=== PATIENT | female | born 1960 | race Caucasian/White ===

== ENCOUNTER → 2019-03-27 | Day surgery (SDC) | payer OTHER ==
[2019-03-25 13:35] LABS: BASOPHILS # (AUTO) 0.2 (0.0-0.1); BASOPHILS % 1.3 % (0.0-1.0); EOSINOPHILS # (AUTO) 0.3 (0.0-0.4); EOSINOPHILS % 1.8 % (0.0-6.0); HEMATOCRIT 42.1 % (34.2-44.1); HEMOGLOBIN 14.2 g/dL (12.0-16.0); LYMPHOCYTES # (AUTO) 2.4 (1.0-3.2); LYMPHOCYTES % 16.2 % (18.0-39.1); MEAN CORPUSCULAR HEMOGLOBIN 32.2 pg (28-32); MEAN CORPUSCULAR HGB CONC 33.7 g/dL (31-35); MEAN CORPUSCULAR VOLUME 95.5 fL (81-99); MONOCYTES # (AUTO) 0.9 (0.2-0.8); MONOCYTES % 6.3 % (4.4-11.3); NEUTROPHILS # (AUTO) 10.8 (2.1-6.9); NEUTROPHILS % 73.9 % (38.7-80.0); PLATELET COUNT 379 x10e3/uL (140-360); RED BLOOD COUNT 4.41 x10e6/uL (3.6-5.1); RED CELL DISTRIBUTION WIDTH 13.2 % (11.7-14.4)
[~2019-03-27] MED LIST: AMLODIPINE BESY10 MG PO; ASA81 MG PO; ASPIRIN325 MG PO; CIPRO500 MG PO; CYMBALTA PO; CYMBALTA30 MG PO; CYMBALTA60 MG PO; DEMADEX10 MG PO; FENTANYL CITRATE/PF 100MCG/2 ML INJ ONE; GABAPENTIN300 MG PO; GLUCAGON FOR INJ 1 MG VIAL ONE; HUMALOG100 UNIT/1; HYDROCODON-ACE1 EAC8 PO; HYOSCYAMINE SULFATE 0.5 MG/ML INJ ONE; K DUR10 MEQ PO; LEVAQUIN750 MG PO; LEVOCETIRIZINE D5 MG PO; LEVOTHYROXINE175 MCG PO; LIDOCAINE HCL 2% LOCAL INJ 5 ML SDV VIAL INJ ONE; LOPRESSOR50 MG PO; LOSARTAN POTAS100 MG PO; LOSARTAN POTASS25 MG PO; LOSARTAN POTASS50 MG; METOCLOPRAMIDE10 MG PO; METOPROLOL SUCC50 MG PO; METOPROLOL TART50 MG PO; MIDAZOLAM HCL 2 MG/2 ML VIAL ONE; MONTELUKAST SOD10 MG PO; MUCINEX600 MG PO; NORCO 10-325 T1 EACH PO; NORVASC10 MG PO; NORVASC2.5 MG PO; NOVOLOG100 UNIT/1 SQ; OMEPRAZOLE20 MG PO; OMEPRAZOLE40 MG PO; OXCARBAZEPINE150 MG PO; PANTOPRAZOLE SO40 MG PO; PLAVIX75 MG PO; POTASSIUM GLUCO99 M1 PO; PRAVASTATIN SOD10 MG PO; PREDNISONE10 MG; PREDNISONE10 MG PO; PREDNISONE20 MG PO; PREDNISONE5 MG PO; PROPOFOL IV EMULSION 10 MG/ML 50 ML VIAL ONE; PROVENTIL HFA6.7 GM INH; REGLAN5 MG PO; SINGULAIR10 MG PO; SOMA350 MG PO; SPIRIVA18 MCG; SPIRIVA18 MCG INH; SYMBICORT 80-10.2 GM INH; TOPIRAMATE25 MG PO; VANCOMYCIN1 GM/250 M IV; XYZAL5 MG PO; Z.0.METOCLOPRAMIDE10; Z.0.NEURONTIN300 MG PO; Z.0.NORVASC10 MG PO; Z.0.PLAVIX75 MG PO; Z.0.PROTONIX40 MG PO; Z.0.SIMVASTATIN10 MG; Z.0.SYNTHROID150 MCG PO; [UNRECOGNIZED DRUG - OTHER]; [UNRECOGNIZED DRUG - OTHER] PO; [UNRECOGNIZED DRUG - OTHER] PO
--- OUTSIDE RECORDS SUMMARY | 2019-03-27 06:12 | XMS REPORT | Summary of Care ---
Author Author WILMA RO, [facility] Organization Unknown Address Unknown Phone Unavailable Care Team Providers Care Coyote Hunter Name Role Phone PARTH Jeffery, DESTINY Unavailable Unavailable DORA ALMENDAREZ LA, TANVI Linda Unavailable Unavailable DORA Jeffery, TANVI Unavailable Unavailable BRYON ALMENDAREZ [place], PA Betts Unavailable Unavailable PARTH ALMENDAREZ LA, DESTINY Unavailable Unavailable Unavailable Unavailable Functional Status Name Dates Details Functional status health issues are not documented Status: Name Dates Details Cognitive status health issues are not documented Status: Problems Name Dates Details Peripheral neuropathy, hereditary/idiopathic (356.9, G60.9) Status: Active Asthma (493.90, J45.909) Status: Active Need for influenza vaccination (V04.81, Z23) Status: Active Encounter for routine gynecological examination with Papanicolaou smear of cervix (V72.31, Z01.419) Status: Active Visit for screening mammogram (V76.12, Z12.31) Status: Active Yeast vaginitis (112.1, B37.3) Status: Active Irregular bleeding (626.4, N92.6) Status: Active Post-menopause bleeding (627.1, N95.0) Status: Active Type 1 diabetes mellitus (250.01, E10.9) Status: Active Presence of insulin pump (V45.85, Z96.41) Status: Active Essential (primary) hypertension (401.9, I10) Status: Active Hyperlipidemia (272.4, E78.5) Status: Active Hypothyroidism (244.9, E03.9) Status: Active Medications Name Dates Details Torsemide 20 MG Oral Tablet two every morning DESTINY ALBA M.D. * Start : 28-Apr-2013 Active Clopidogrel Bisulfate 75 MG Oral Tablet TAKE 1 TABLET DAILY. * Refills: 0 PARTH M.Jeanine, DESTINY * Start : 28-Apr-2013 Active Metoprolol Succinate ER 50 MG Oral Tablet Extended Release 24 Hour 1 a day * Refills: 0 PARTH M.Jeanine, DESTINY * Start : 28-Apr-2013 Active amLODIPine Besylate 10 MG Oral Tablet TAKE 1 TABLET DAILY FOR BLOOD PRESSURE. * Refills: 0 DESTINY ALBA M.D. * Start : 28-Apr-2013 Active Levothyroxine Sodium 175 MCG Oral Tablet TAKE ONE TABLET BY MOUTH DAILY SATURDAY TO SATURDAY AND 1/2 TABLET ON SATURDAY. Damaso MCCARTHYJose Armando 08-09-18 * Quantity: 90 Refills: 0 DESTINY ALBA M.D. * Start : 28-Apr-2013 Active Aspirin 81 MG TABS * Refills: 0 DESTINY ALBA M.D. * Start : 28-Apr-2013 Active FreeStyle Lite Test In Vitro Strip USE TO TEST BLOOD SUGAR 6 TIMES A DAY. * Quantity: 600 Refills: 0 DESTINY ALBA M.D. * Start : 10-Jun-2018 Active Losartan Potassium 50 MG Oral Tablet Per Dr Hinson * Refills: 0 DESTINY ALBA M.D. * Start : 29-Apr-2013 Active Gabapentin 600 MG Oral Tablet * Refills: 0 DESTINY ALBA M.D. * Start : 03-Mar-2015 Active HumaLOG 100 UNIT/ML Subcutaneous Solution 12MN=0.7; 8am=0.9; 6 pm=0.9; ICR 1:8 (MN); 1:8(11A); 1:8(3P); CF 70 (MN); 70 (3 30p); UP TO 70 UNITS A DAY. * Quantity: 7 Refills: 0 DESTINY ALBA M.D. * Start : 18-Jul-2015 Active 10 ML Vial Vitamin D3 2000 UNIT Oral Capsule 1 a day * Quantity: 100 Refills: 4 DESTINY ALBA M.D. * Start : 25-Mar-2017 Active Atorvastatin Calcium 20 MG Oral Tablet TAKE ONE (1) TABLET(S) BY MOUTH AT NIGHT. REPLACING PRAVASTATIN. * Quantity: 90 Refills: 0 DESTINY ALBA M.D. * Start : 23-May-2018 Active FreeStyle Rin 14 Day Sensor CHANGE ONE SENSOR EVERY14 DAYS DIRECTED * Quantity: 7 Refills: 3 DESTINY ALBA M.D. * Start : 21-Mar-2018 Active FreeStyle Rin 14 Day [place] Device 1 reciever/Saxon for Rin to check blood sugars with Rin sensor * Quantity: 1 Refills: 3 DESTINY ALBA M.D. * Start : 21-Mar-2018 Active DULoxetine HCl - 60 MG Oral Capsule Delayed Release Particles * Refills: 0 Active Pantoprazole Sodium 40 MG Oral Tablet Delayed Release * Refills: 0 Active Montelukast Sodium 10 MG Oral Tablet * Refills: 0 Active Basaglar KwikPen 100 UNIT/ML Subcutaneous Solution Pen-injector Inject 12 units every 12 hours as basal insulin when insulin pump is not in use. . * Quantity: 2 Refills: 0 DESTINY ALBA M.D. 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.8, J84.89) Status: Resolved History of Chronic obstructive pulmonary disease (496, J44.9) Status: Resolved History of Coronary Artery Disease (V12.59) Status: Resolved History of Diabetes mellitus (250.00, E11.9) Status: Resolved History of Epilepsy (345.90) Status: Resolved History of essential hypertension (V12.59, Z86.79) Status: Resolved History of Graves disease (242.00, E05.00) Status: Resolved Personal history of asthma (V12.69, Z87.09) Status: Resolved Personal history of asthma (V12.69, Z87.09) Status: Resolved Personal history of urinary tract infection (V13.02, Z87.440) Status: Resolved Procedures Procedure Dates Details History of Rotator Cuff Repair Completed History of Back Surgery Completed History of Cholecystectomy Completed History of Tonsillectomy Completed History of Cholecystectomy Completed History of Shoulder Surgery Completed History of Knee Surgery Completed History of Back Surgery Completed History of Foot Surgery Completed History of Foot Surgery Completed Immunization Name Dates Details Influenza on: 04-Oct-2014 Fluzone INJ Lot #: [id number] on: 15-Sep-2015 Fluzone Quadrivalent 0.5 ML Intramuscular Suspension on: 01-Sep-2018 Family History Name Dates Details Family history of Hypertension (V17.49) Comments: Family History Status: Active Family history of Diabetes Mellitus (V18.0) Comments: Family History Status: Active Family history of Coronary Artery Disease (V17.49) Comments: Family History Status: Active Name Dates Details Family history of Hypertension (V17.49) Status: Active Social History Name Dates Details - Status: Name Dates Details Former smoker Vital Signs Date Test Result Details :11 BP Systolic 150 mm[Hg] Status: BP Diastolic 70 mm[Hg] Status: :40 BP Systolic 171 mm[Hg] Status: Comments: Location: LUE; Position: Sitting BP Diastolic 54 mm[Hg] Status: Comments: Location: LUE; Position: Sitting Height 67 in Status: Weight 204.375 lb Status: Body Mass Index Calculated 32.01 kg/m2 Status: Body Surface Area Calculated 2.04 m2 Status: Heart Rate 61 /min Status: Results Date Description Value Details :41 [O] Hemoglobin A1c (in office) HEMOGLOBIN A1c 8.0 :41 [O] Lipid Panel (In Office) CHOLESTEROL, TOTAL 196 HDL CHOLESTEROL 54 TRIGLYCERIDES 55 LDL-CHOLESTEROL 132 NON HDL CHOLESTEROL 142 T. Chol/HDL Ratio 3.6 GLUCOSE 198 :42 Glucose (Point of Care In Office) Glucose POC [facility] 213 Plan of Care Name Dates Details Planned Observations Planned Goals not documented Planned Encounters Appointment; JAGDEEP DILLON RD On: 13-Mar-2019 13:00 Appointment; DESTINY ALBA M.D. On: 29-May-2019 14:45 Interventions Provided Medication Changes* Levothyroxine Sodium 175 MCG Oral Tablet - Renew Labs/Procedures/Imaging* [O] Hemoglobin A1c (in office); Done: 05 Feb 2019 * [O] Lipid Panel (In Office); Done: 05 Feb 2019 * Glucose (Point of Care In Office); Done: 05 Feb 2019 Instructions Name Dates Details Instructions not documented Encounters Appointment; DESTINY ALBA M.D. Encounter Diagnosis: Problem not documented On: 25-Mar-2017 12:00 Appointment; DESTINY ALBA M.D. Encounter Diagnosis: Problem not documented On: 03-Jul-2017 14:45 Appointment; DESTINY ALBA M.D. Encounter Diagnosis: Problem not documented On: 08-Nov-2017 15:15 Appointment; JAGDEEP DILLON RD Encounter Diagnosis: Problem not documented On: 12-Dec-2017 8:00 Appointment; JAGDEEP DILLON RD Encounter Diagnosis: Problem not documented On: 13-Dec-2017 8:00 Appointment; JAGDEEP DILLON RD Encounter Diagnosis: Problem not documented On: 10-Jan-2018 10:00 Appointment; DESTINY ALBA M.D. Encounter Diagnosis: Problem not documented On: 21-Mar-2018 11:00 Appointment; DESTINY ALBA M.D. Encounter Diagnosis: Problem not documented On: 28-Mar-2018 8:30 Appointment; PA SLATER M.D. Encounter Diagnosis: Problem not documented On: 02-Apr-2018 8:40 Appointment; KATARZYNA SIERRA3 Encounter Diagnosis: Problem not documented On: 07-Apr-2018 8:30 Appointment; DESTINY ALBA M.D. Encounter Diagnosis: Problem not documented On: 14-Apr-2018 8:30 Appointment; DESTINY ALBA M.D. Encounter Diagnosis: Problem not documented On: 30-May-2018 12:00 Appointment; DESTINY ALBA M.D. Encounter Diagnosis: Problem not documented On: 08-Aug-2018 12:00 Appointment; DESTINY ALBA M.D. Encounter Diagnosis: Problem not documented On: 06-Nov-2018 13:30 Appointment; DESTINY ALBA M.D. Encounter Diagnosis: Problem not documented On: 05-Feb-2019 11:00
[2019-03-27 10:50] VITALS: BP 110/56
--- NOTE | 2019-03-27 17:30 | Operative Report ---
DATE OF PROCEDURE: 03/27/2019 SURGEON: Reid Heath MD PROCEDURE: Esophagogastroduodenoscopy with biopsies and colonoscopy with polypectomy. INDICATIONS FOR EGD: Upper abdominal pain, bloating, nausea. INDICATIONS FOR COLONOSCOPY: Surveillance colonoscopy, personal history of colon polyps. MEDICATION: The patient was done under MAC, please see anesthesiologist's note. PROCEDURE IN DETAIL: With the patient in left lateral decubitus position, the flexible fiberoptic Olympus gastroscope was introduced into the esophagus under direct visualization without any difficulty. There was some cluster of nodules noted in the cervical esophagus that was biopsied. Some patchy erythema was noted in the distal esophagus. The scope was then advanced with ease into the stomach and mucosa overlying the antrum and the body revealed some patchy erythema, [id number] edema and biopsies were obtained and sent to stain for H pylori. Pylorus was of normal contour and shape, was intubated with ease and the scope was advanced all the way to the second portion of the duodenum. Biopsies were obtained from the proximal second portion and the duodenal bulb to rule out sprue. The scope was then withdrawn back into the stomach and retroflexed and mucosa overlying the fundus and the cardia appeared to be within normal limits. The scope was then straightened out, it was subsequently withdrawn. The patient tolerated procedure well. IMPRESSION: 1. Cluster of nodules, cervical esophagus, biopsied. 2. Distal esophagitis, mild. 3. Gastritis, biopsied, biopsies sent to stain for H pylori. 4. Rule out sprue. PLAN: Follow up histology. Initiate Protonix 40 mg one p.o. q.a.m. a.c. PROCEDURE IN DETAIL: The patient was then turned around. After adequate lubrication of the anal canal, a flexible fiberoptic Olympus colonoscope was inserted into the rectum with ease and advanced all the way to the cecum. The colon was excessively spastic and irritable and suboptimally visualized. The scope was then withdrawn slowly whatever was visualized and mucosa overlying the cecum, ascending colon, and transverse colon appeared to be grossly within normal limits. Two polyps were removed per snare electrocautery from the descending colon. One polyp was snared and one polyp was hot biopsied from the sigmoid colon. The rectum grossly appeared to be within normal limits. The scope was then retroflexed into the distal rectum and small internal hemorrhoids were noted, none of which was actively bleeding. The scope was then straightened out, it was subsequently withdrawn. The patient tolerated procedure well. IMPRESSION: 1. Colon excessively spastic and irritable, suboptimally visualized. 2. Descending colon polyps snared x2. 3. Sigmoid colon polyps x2, one snared and one hot biopsied. 4. Internal hemorrhoids, none actively bleeding. PLAN: Follow up histology. Initiate high-fiber, low-fat diet. Initiate high-fiber supplement. The patient might benefit from a followup colonoscopy in one year as the colon was suboptimally visualized due to excessive spasticity and irritability. Reid Heath MD [facility]/[place] /[id number]
== END | disposition home or self-care (01) ==
LOC: OR 06:10
PROVIDERS: ATTEND Internal Medicine Gastroenterology
DX: K29.70 Gastritis, unspecified, without bleeding (principal); D12.4 Benign neoplasm of descending colon; D12.5 Benign neoplasm of sigmoid colon; K22.8 Other specified diseases of esophagus; K20.9 Esophagitis, unspecified; K58.9 Irritable bowel syndrome, unspecified; K64.8 Other hemorrhoids; J44.9 Chronic obstructive pulmonary disease, unspecified; I10 Essential (primary) hypertension; G47.33 Obstructive sleep apnea (adult) (pediatric); E11.9 Type 2 diabetes mellitus without complications; I44.0 Atrioventricular block, first degree; R00.1 Bradycardia, unspecified; E03.9 Hypothyroidism, unspecified; Z01.810 Encounter for preprocedural cardiovascular examination; Z01.812 Encounter for preprocedural laboratory examination; Z79.82 Long term (current) use of aspirin; Z79.02 Long term (current) use of antithrombotics/antiplatelets; Z79.4 Long term (current) use of insulin; Z68.33 Body mass index [BMI] 33.0-33.9, adult; Z87.891 Personal history of nicotine dependence; Z80.0 Family history of malignant neoplasm of digestive organs
CPT/HCPCS: 36415 ×2; 43239; 45384; 45385; 82948; 85025; 93005; J1610; J1980; J2001; J2250; J2704; 45378

== ENCOUNTER → 2019-07-21 | Day surgery (SDC) | payer OTHER ==
[2019-07-08 11:19] LABS: BASOPHILS # (AUTO) 0.1 (0.0-0.1); BASOPHILS % 1.3 % (0.0-1.0); EOSINOPHILS # (AUTO) 0.2 (0.0-0.4); EOSINOPHILS % 2.9 % (0.0-6.0); HEMATOCRIT 38.4 % (34.2-44.1); HEMOGLOBIN 12.8 g/dL (12.0-16.0); LYMPHOCYTES # (AUTO) 2.2 (1.0-3.2); LYMPHOCYTES % 26.1 % (18.0-39.1); MEAN CORPUSCULAR HEMOGLOBIN 32.7 pg (28-32); MEAN CORPUSCULAR HGB CONC 33.3 g/dL (31-35); MEAN CORPUSCULAR VOLUME 98.2 fL (81-99); MONOCYTES # (AUTO) 0.9 (0.2-0.8); MONOCYTES % 10.5 % (4.4-11.3); NEUTROPHILS # (AUTO) 4.9 (2.1-6.9); NEUTROPHILS % 58.4 % (38.7-80.0); PLATELET COUNT 330 x10e3/uL (140-360); RED BLOOD COUNT 3.91 x10e6/uL (3.6-5.1); RED CELL DISTRIBUTION WIDTH 13.8 % (11.7-14.4)
[~2019-07-21] MED LIST changes: +ALPHA LIPOIC A300 MG PO; +DEXTROSE 5% 250ML 250 ML IV ONE; -GLUCAGON FOR INJ 1 MG VIAL ONE; -HYOSCYAMINE SULFATE 0.5 MG/ML INJ ONE; -LIDOCAINE HCL 2% LOCAL INJ 5 ML SDV VIAL INJ ONE; +OR PHACO EYE KIT ONE; +PREOP PHACO EYE KIT ONE; -PROPOFOL IV EMULSION 10 MG/ML 50 ML VIAL ONE
--- OUTSIDE RECORDS SUMMARY | 2019-07-21 11:41 | XMS REPORT | Summary of Care ---
Author Author Pattie Croft R.N. Organization Unknown Address Unknown Phone Unavailable Care Team Providers Care Assistant Coach Name Role Phone PARTH Jeffery, DESTINY Unavailable Unavailable Lang Hull, Pattie Unavailable Unavailable DORA ALMENDAREZ [place], TANVI Linda Unavailable Unavailable DORA Jeffery, TANVI Byrne Unavailable BRYON ALMENDAREZ [place], PA Betts Unavailable Unavailable PARTH ALMENDAREZ, DESTINY Unavailable Unavailable Unavailable Unavailable Functional Status [...] 20 MG Oral Tablet two every morning PARTH Jeffery, DESTINY * Start : 28-Apr-2013 Active Clopidogrel Bisulfate 75 MG Oral Tablet TAKE 1 TABLET DAILY. * Refills: 0 PARTH M.Jeanine, DESTINY * Start : 28-Apr-2013 Active Metoprolol Succinate ER 50 MG Oral Tablet Extended Release 24 Hour 1 a day * Refills: 0 PARTH M.D., DESTINY * Start : 28-Apr-2013 Active amLODIPine Besylate 10 MG Oral Tablet TAKE 1 TABLET DAILY FOR BLOOD PRESSURE. * Refills: 0 DESTINY ALBA M.D. * Start : 28-Apr-2013 Active Levothyroxine Sodium 175 MCG Oral Tablet TAKE ONE TABLET BY MOUTH DAILY SATURDAY TO SATURDAY; Start 07-01-19 * Quantity: 90 Refills: 0 DESTINY ALBA [...] 600 MG Oral Tablet * Refills: 0 DESTNIY ALBA M.D. * Start : 03-Mar-2015 Active HumaLOG 100 UNIT/ML Subcutaneous Solution 12MN=0.7; 8am=0.9; 6 pm=0.9; ICR 1:8 (MN); 1:8(11A); 1:8(3P); CF 65 (MN); 65 (3 30p); UP TO 70 UNITS A [...] 0 DESTINY ALBA M.D. * Start : 03-Jul-2017 Active FreeStyle Rin 14 Day Sensor CHANGE ONE SENSOR EVERY14 DAYS DIRECTED * Quantity: 7 Refills: 3 DESTINY ALBA M.D. * Start : 21-Mar-2018 Active FreeStyle Rin 14 Day [place] Device 1 reciever/[place] for Rin to check blood sugars with [...] Influenza on: 04-Oct-2014 Fluzone INJ Lot #: [id number] on: 15-Sep-2015 Fluzone Quadrivalent 0.5 ML Intramuscular [...] smoker Vital Signs Date Test Result Details No Known Vitals to report Results Date Description Value Details :53 [[facility]] MICROALBUMIN, RANDOM URINE (W/CREATININE) Comments: Reference RangeNot establishedREPORT COMMENT:FASTING:YES CREATININE, RANDOM URINE 87 mg/dl (Normal) Range: 20-275 MICROALBUMIN 15.6 mg/dl (Normal) Comments: Reference RangeNot established MICROALBUMIN/CREATININE RATIO, RANDOM URINE 179 {MCG/MG_CRE} (Above high threshold) Range: <30 Comments: The ADA defines abnormalities in albuminexcretion as follows: Category Result (mcg/mg creatinine) Normal <30Microalbuminuria 30-299 Clinical albuminuria > RK=211 The ADA recommends that at least two of threespecimens collected within a 3-6 month period beabnormal before considering a patient to bewithin a diagnostic category. :53 [[facility]] CMP W/EGFR GLUCOSE 114 mg/dl (Above high threshold) Range: 65-99 Comments: Fasting reference interval For someone without known diabetes, a glucose valuebetween 100 and 125 mg/dL is consistent withprediabetes and should be confirmed with afollow-up test. UREA NITROGEN (BUN) 21 mg/dl (Normal) Range: 7-25 CREATININE 1.09 mg/dl (Above high threshold) Range: 0.50-1.05 Comments: For patients >49 years of age, the reference limitfor Creatinine is approximately 13% higher for peopleidentified as -Mexican. eGFR NON- 56 {ML/MIN/1.7} (Below low threshold) Range: > OR=60 eGFR 65 {ML/MIN/1.7} (Normal) Range: > OR=60 BUN/CREATININE RATIO 19 {CALC} (Normal) Range: 6-22 SODIUM 134 mmol/L (Below low threshold) Range: 135-146 POTASSIUM 4.8 mmol/L (Normal) Range: 3.5-5.3 CHLORIDE 97 mmol/L (Below low threshold) Range: 98-110 CARBON DIOXIDE 29 mmol/L (Normal) Range: 20-32 CALCIUM 9.8 mg/dl (Normal) Range: 8.6-10.4 PROTEIN, TOTAL 6.6 g/dl (Normal) Range: 6.1-8.1 ALBUMIN 4.1 g/dl (Normal) Range: 3.6-5.1 GLOBULIN 2.5 {G/DL__CALC} (Normal) Range: 1.9-3.7 ALBUMIN/GLOBULIN RATIO 1.6 {CALC} (Normal) Range: 1.0-2.5 BILIRUBIN, TOTAL 0.6 mg/dl (Normal) Range: 0.2-1.2 ALKALINE PHSPHATASE 79 u/l (Normal) Range: 33-130 AST 18 u/l (Normal) Range: 10-35 ALT 17 u/l (Normal) Range: 6-29 [id number] [[facility]] T4, FREE T4, FREE 1.4 ng/dl (Normal) Range: 0.8-1.8 :53 [[facility]] TSH, 3RD GENERATION Comments: REPORT COMMENT:FASTING:YES TSH 0.23 {MIU/L} (Below low threshold) Range: 0.40-4.50 Plan of Care Name Dates Details Planned Observations Planned Goals not documented Planned Encounters Appointment; JAGDEEP DILLON RD On: 23-Jul-2019 14:00 Appointment; DESTINY ALBA M.D. On: 01-Sep-2019 16:15 Interventions Provided Discussion/Summary* Guideline Used: * Other: * lab * Reason for Disposition: to receive lab results. * Intended Caller Action: * Other: * Dr. Riojas office calling for CBC results. Patient did not have lab done. Instructions Name Dates Details Instructions not documented [...] Diagnosis: Problem not documented On: 05-Feb-2019 11:00 Appointment; JAGDEEP DILLON RD Encounter Diagnosis: Problem not documented On: 13-Mar-2019 13:00 Appointment; JAGDEEP DILLON RD Encounter Diagnosis: Problem not documented On: 20-Apr-2019 15:00 Appointment; DESTINY ALBA M.D. Encounter Diagnosis: Problem not documented On: 29-May-2019 14:45
[2019-07-21 15:55] VITALS: BP 119/54
== END | disposition home or self-care (01) ==
LOC: OR 11:39
PROVIDERS: ATTEND Ophthalmology
DX: H25.11 Age-related nuclear cataract, right eye (principal); H25.23 Age-related cataract, morgagnian type, bilateral; E11.9 Type 2 diabetes mellitus without complications; J44.9 Chronic obstructive pulmonary disease, unspecified; I10 Essential (primary) hypertension; E03.9 Hypothyroidism, unspecified; M54.9 Dorsalgia, unspecified; G47.33 Obstructive sleep apnea (adult) (pediatric); E78.5 Hyperlipidemia, unspecified; K21.9 Gastro-esophageal reflux disease without esophagitis; K58.9 Irritable bowel syndrome, unspecified; Z79.02 Long term (current) use of antithrombotics/antiplatelets; Z79.4 Long term (current) use of insulin; Z68.32 Body mass index [BMI] 32.0-32.9, adult; Z87.891 Personal history of nicotine dependence
CPT/HCPCS: 36415 ×2; 66984; 82948; 85025; J2250; J3010; J7070; V2632

== ENCOUNTER → 2019-08-04 | Day surgery (SDC) | payer OTHER ==
[~2019-08-04] MED LIST changes: -DEXTROSE 5% 250ML 250 ML IV ONE
--- OUTSIDE RECORDS SUMMARY | 2019-08-04 09:08 | XMS REPORT | Summary of Care ---
Author Author EHSAN Jeffery, LOUANN Burnham Unknown Address [facility] Phone Unavailable Care Team Providers Care Construction Assistant Name Role Phone PARTH Jeffery, DESTINY Unavailable Unavailable DORA ALMENDAREZ [place], TANVI Linda Unavailable Unavailable DORA Jeffery, TANVI Byrne Unavailable BRYON ALMENDAREZ [place], PA Betts Unavailable Unavailable DESTINY ALBA MD Unavailable Unavailable Unavailable Unavailable Functional Status Name [...] Active Post-menopause bleeding (627.1, N95.0) Status: Active Presence of insulin pump (V45.85, Z96.41) Status: Active Essential (primary) hypertension (401.9, I10) Status: Active Hyperlipidemia (272.4, E78.5) Status: Active Hypothyroidism (244.9, E03.9) Status: Active Type 1 diabetes mellitus (250.01, E10.9) Status: Active Medications Name Dates Details Torsemide 20 MG Oral Tablet two every morning DESTINY ALBA M.D. * Start : 28-Apr-2013 Active Clopidogrel Bisulfate 75 MG Oral Tablet TAKE 1 TABLET DAILY. * Refills: 0 PARTH Jeffery, DESTINY * Start : 28-Apr-2013 Active Metoprolol Succinate ER 50 MG Oral Tablet Extended Release 24 Hour 1 a day * Refills: 0 PARTH Jeffery, DESTINY * Start : 28-Apr-2013 Active amLODIPine Besylate 10 MG Oral Tablet TAKE 1 TABLET DAILY FOR BLOOD PRESSURE. * Refills: 0 DESTINY ALBA M.D. * Start : 28-Apr-2013 Active Levothyroxine Sodium 175 MCG Oral Tablet TAKE ONE TABLET BY MOUTH DAILY SATURDAY TO SATURDAY * Quantity: 90 Refills: 0 DESTINY ALBA [...] a day * Quantity: 100 Refills: 4 PARTHDESTINY Salcedo M.D. * Start : 25-Mar-2017 Active Atorvastatin Calcium 20 MG Oral Tablet TAKE ONE (1) TABLET(S) BY MOUTH AT NIGHT. REPLACING PRAVASTATIN. * Quantity: 90 Refills: 0 DESTINY ALBA M.D. * Start : 03-Jul-2017 Active FreeStyle Rin 14 Day Sensor CHANGE ONE SENSOR EVERY14 DAYS DIRECTED * Quantity: 7 Refills: 3 PARTH M.DESTINY Solorzano * Start : 21-Mar-2018 Active FreeStyle Rin 14 Day [place] Device 1 reciever/[place] for Rin to check blood sugars with Rin sensor * Quantity: 1 Refills: 3 PARTHDESTINY Salcedo M.D. * Start : 21-Mar-2018 Active DULoxetine HCl - 60 MG Oral Capsule Delayed Release Particles * Refills: 0 M.A. Active Pantoprazole Sodium 40 MG Oral Tablet Delayed Release * Refills: 0 M.A. Active Montelukast Sodium 10 MG Oral Tablet * Refills: 0 M.A. Active Basaglar KwikPen 100 UNIT/ML Subcutaneous Solution [...] Influenza on: 04-Oct-2014 Fluzone INJ Lot #: [id number] on: 15-Sep-2015 Fluzone Quadrivalent 0.5 ML Intramuscular [...] smoker Vital Signs Date Test Result Details [id number] Weight 211.2 lb Status: Body Mass Index Calculated 33.08 kg/m2 Status: Body Surface Area Calculated 2.07 m2 Status: Height 67 in Status: Results Date Description Value Details :53 [[facility]] MICROALBUMIN, RANDOM URINE (W/CREATININE) Comments: Reference RangeNot establishedREPORT COMMENT:FASTING:YES CREATININE, RANDOM URINE 87 mg/dl (Normal) Range: 20-275 MICROALBUMIN 15.6 mg/dl (Normal) Comments: Reference RangeNot established MICROALBUMIN/CREATININE RATIO, RANDOM URINE 179 {MCG/MG_CRE} (Above high threshold) Range: <30 Comments: The ADA defines abnormalities in albuminexcretion as follows: Category Result (mcg/mg creatinine) Normal <30Microalbuminuria 30-299 Clinical albuminuria > JX=755 The ADA recommends that at least two of threespecimens collected within a 3-6 month period beabnormal before considering a patient to bewithin a diagnostic category. :53 [[facility]] CMP W/EGFR GLUCOSE 114 mg/dl (Above high [...] is approximately 13% higher for peopleidentified as -Gambian. eGFR NON- 56 {ML/MIN/1.7} (Below low threshold) [...] 10-35 ALT 17 u/l (Normal) Range: 6-29 :53 [[facility]] T4, FREE T4, FREE 1.4 ng/dl (Normal) Range: 0.8-1.8 :53 [[facility]] TSH, 3RD GENERATION Comments: REPORT COMMENT:FASTING:YES TSH 0.23 {MIU/L} (Below low threshold) Range: 0.40-4.50 Plan of Care Name Dates Details Planned Observations Planned Goals not documented Planned Encounters Appointment; DESTINY ALBA M.D. On: 01-Sep-2019 16:15 Interventions Provided Medication Changes* Levothyroxine Sodium 175 MCG Oral Tablet - Renew Instructions Name Dates Details Instructions not documented [...] M.D. Encounter Diagnosis: Problem not documented On: 2-May-2018 8:40 Appointment; [facility] Encounter Diagnosis: Problem not documented On: 07-Apr-2018 [...] Diagnosis: Problem not documented On: 29-May-2019 14:45 Appointment; JAGDEEP DILLON RD Encounter Diagnosis: Problem not documented On: 23-Jul-2019 14:00
[2019-08-04 13:25] VITALS: BP 165/60
== END | disposition home or self-care (01) ==
LOC: OR 09:04
PROVIDERS: ATTEND Ophthalmology
DX: H25.12 Age-related nuclear cataract, left eye (principal); G47.33 Obstructive sleep apnea (adult) (pediatric); J44.9 Chronic obstructive pulmonary disease, unspecified; E11.9 Type 2 diabetes mellitus without complications; E03.9 Hypothyroidism, unspecified; I10 Essential (primary) hypertension; Z79.02 Long term (current) use of antithrombotics/antiplatelets; Z79.4 Long term (current) use of insulin; Z87.891 Personal history of nicotine dependence
CPT/HCPCS: 36415; 66984; 82948; J2250; J3010; V2632

== ENCOUNTER → 2020-12-01 | Day surgery (SDC) | payer OTHER ==
[2020-11-29 09:04] LABS: BASOPHILS # (AUTO) 0.1 (0.0-0.1); BASOPHILS % 1.5 % (0.0-1.0); EOSINOPHILS # (AUTO) 0.3 (0.0-0.4); EOSINOPHILS % 4.1 % (0.0-6.0); HEMATOCRIT 38.6 % (34.2-44.1); HEMOGLOBIN 12.7 g/dL (12.0-16.0); LYMPHOCYTES # (AUTO) 1.9 (1.0-3.2); MEAN CORPUSCULAR HEMOGLOBIN 31.4 pg (28-32); MEAN CORPUSCULAR HGB CONC 32.9 g/dL (31-35); MEAN CORPUSCULAR VOLUME 95.5 fL (81-99); MONOCYTES # (AUTO) 0.8 (0.2-0.8); MONOCYTES % 9.7 % (4.4-11.3); NEUTROPHILS # (AUTO) 4.9 (2.1-6.9); NEUTROPHILS % 60.5 % (38.7-80.0); PLATELET COUNT 340 x10e3/uL (140-360); RED BLOOD COUNT 4.04 x10e6/uL (3.6-5.1); RED CELL DISTRIBUTION WIDTH 13.2 % (11.7-14.4)
[~2020-12-01] MED LIST changes: +HYOSCYAMINE 0.125 MG TAB ONE; +HYOSCYAMINE SULFATE 0.5 MG/ML INJ ONE; +LIDOCAINE HCL 2% LOCAL INJ 5 ML SDV VIAL INJ ONE; -LOSARTAN POTASS50 MG; +LOSARTAN POTASS50 MG PO; +NYSTATIN100000 UNI PO; -OR PHACO EYE KIT ONE; +ORPHENADRINE C100 MG PO; -PREOP PHACO EYE KIT ONE; +PROPOFOL IV EMULSION 10 MG/ML 20 ML VIAL ONE; +TESSALON PERLE100 MG PO
[2020-12-01 15:52] VITALS: BP 146/57
== END | disposition home or self-care (01) ==
LOC: OR 11:22
PROVIDERS: ATTEND Internal Medicine Gastroenterology
DX: R14.0 Abdominal distension (gaseous) (principal); K63.5 Polyp of colon; K62.1 Rectal polyp; K64.8 Other hemorrhoids; R19.7 Diarrhea, unspecified; K20.90 Esophagitis, unspecified without bleeding; K21.9 Gastro-esophageal reflux disease without esophagitis; E11.9 Type 2 diabetes mellitus without complications; I10 Essential (primary) hypertension; J44.9 Chronic obstructive pulmonary disease, unspecified; E03.9 Hypothyroidism, unspecified; I44.0 Atrioventricular block, first degree; Z01.812 Encounter for preprocedural laboratory examination; Z20.828 Contact with and (suspected) exposure to other viral communicable diseases; Z79.02 Long term (current) use of antithrombotics/antiplatelets; Z79.4 Long term (current) use of insulin; Z68.35 Body mass index [BMI] 35.0-35.9, adult; Z87.891 Personal history of nicotine dependence; Z80.0 Family history of malignant neoplasm of digestive organs
CPT/HCPCS: 36415 ×2; 45384; 82948; 85025; J1980; J2001; J2250; J2704; J3010; U0002; 45378

== ENCOUNTER → 2022-08-09 | Outpatient (CLI) | payer BC ==
[~2022-08-09] MED LIST changes: -FENTANYL CITRATE/PF 100MCG/2 ML INJ ONE; -HYOSCYAMINE 0.125 MG TAB ONE; -HYOSCYAMINE SULFATE 0.5 MG/ML INJ ONE; +IOPAMIDOL 370 MG/ML 100 ML INFUS..BTL INJ ONE; -LIDOCAINE HCL 2% LOCAL INJ 5 ML SDV VIAL INJ ONE; -MIDAZOLAM HCL 2 MG/2 ML VIAL ONE; -PROPOFOL IV EMULSION 10 MG/ML 20 ML VIAL ONE; +SODIUM CHLORIDE 0.9% 100 ML ONE
[2022-08-09 09:41] LABS: CREATININE, SERUM 0.91 mg/dL (0.57-1.11)
== END ==
LOC: RAD 08:55
PROVIDERS: ATTEND Family Medicine
DX: I65.21 Occlusion and stenosis of right carotid artery (principal); R06.02 Shortness of breath; R79.89 Other specified abnormal findings of blood chemistry
CPT/HCPCS: 36415; 70498; 82565; 84520; 93306; J7050; Q9967

== ENCOUNTER 2024-10-09 15:08 | Inpatient (IN) | payer BC, OTHER ==
[~2024-10-09] VITALS: Ht 167.6 cm; Wt 90.3 kg
[2024-10-09] VITALS (7 sets, daily range): BP systolic 121–144; BP diastolic 51–52; PULSE 70–77; RESP 16–20; TEMP 97.5–98.5; O2SAT 96–100
[~2024-10-09 15:08] MED LIST changes: -IOPAMIDOL 370 MG/ML 100 ML INFUS..BTL INJ ONE; -SODIUM CHLORIDE 0.9% 100 ML ONE
[2024-10-09] MEDS ORDERED: ALBUTEROL SULF 0.083% NEB SOLN 3 ML NEB NEB PRN (15:30)
[2024-10-09 15:44] LABS: BASOPHILS # (AUTO) 0.1 (0.0-0.1); BASOPHILS % 0.8 % (0.0-1.0); EOSINOPHILS # (AUTO) 0.6 (0.0-0.4); EOSINOPHILS % 3.3 % (0.0-6.0); HEMATOCRIT 32.7 % (34.2-44.1); HEMOGLOBIN 10.4 g/dL (12.0-16.0); LYMPHOCYTES # (AUTO) 2.8 (1.0-3.2); LYMPHOCYTES % 16.3 % (18.0-39.1); MEAN CORPUSCULAR HEMOGLOBIN 33.9 pg (28-32); MEAN CORPUSCULAR HGB CONC 31.8 g/dL (31-35); MEAN CORPUSCULAR VOLUME 106.5 fL (81-99); MONOCYTES # (AUTO) 1.2 (0.2-0.8); MONOCYTES % 7.2 % (4.4-11.3); NEUTROPHILS # (AUTO) 12.4 (2.1-6.9); NEUTROPHILS % 71.9 % (38.7-80.0); PLATELET COUNT 363 x10e3/uL (140-360); RED BLOOD COUNT 3.07 x10e6/uL (3.6-5.1); RED CELL DISTRIBUTION WIDTH 15.9 % (11.7-14.4); WHITE BLOOD COUNT 17.16 x10e3/uL (4.8-10.8)
[2024-10-09] MEDS: METHYLPREDNISOLONE SOD SUCC 125 MG/2ML VIAL IV ONE (15:45)
[2024-10-09 16:06] LABS: ALBUMIN/GLOBULIN RATIO 1.3 (0.8-2.0); ANION GAP 18.3 mmol/L (8-16); BILIRUBIN,TOTAL 0.4 mg/dL (0.2-1.2); CALCIUM 9.6 mg/dL (8.4-10.2); CREATININE, SERUM 3.19 mg/dL (0.57-1.11); POTASSIUM 4.3 mmol/L (3.5-5.1)
[2024-10-09] MEDS: ALBUTEROL SULF 0.083% NEB SOLN 3 ML NEB NEB SCH (19:00)
[2024-10-09] MEDS: SODIUM CHLORIDE 0.9% 1000ML 1,000 ML IV SCH (19:44)
[2024-10-09] MEDS ORDERED: DEXTROSE 50% SYRINGE 50 ML IV PRN (19:45)
[2024-10-09] MEDS: ORPHENADRINE CITRATE 100 MG PO SCH (21:00)
[2024-10-09] MEDS: METHYLPREDNISOLONE SOD SUCC 40 MG/ML VIAL 1ML IV SCH (21:30)
[2024-10-09] MEDS: GABAPENTIN 300 MG CAP PO SCH (21:30)
[2024-10-09] MEDS: LOSARTAN POTASSIUM 100 MG TAB PO SCH (21:31)
[2024-10-09] MEDS: MONTELUKAST SODIUM 10 MG TAB PO SCH (21:31)
[2024-10-09] MEDS: GUAIFENESIN/CODEINE 5 ML LIQD PO PRN (21:41)
[2024-10-09] MEDS: INSULIN LISPRO 100 UNIT/1 ML 3ML VIAL SQ SCH (22:16)
[2024-10-10] VITALS (14 sets, daily range): BP systolic 104–132; BP diastolic 35–51; PULSE 62–79; RESP 18–20; TEMP 97.3–97.9; O2SAT 95–100
[2024-10-10 05:29] LABS: BASOPHILS % 0.1 % (0.0-1.0); EOSINOPHILS % 0.1 % (0.0-6.0); HEMATOCRIT 29.8 % (34.2-44.1); HEMOGLOBIN 9.8 g/dL (12.0-16.0); LYMPHOCYTES # (AUTO) 0.6 (1.0-3.2); LYMPHOCYTES % 3.9 % (18.0-39.1); MEAN CORPUSCULAR HEMOGLOBIN 34.4 pg (28-32); MEAN CORPUSCULAR HGB CONC 32.9 g/dL (31-35); MEAN CORPUSCULAR VOLUME 104.6 fL (81-99); MONOCYTES # (AUTO) 0.1 (0.2-0.8); MONOCYTES % 0.3 % (4.4-11.3); NEUTROPHILS # (AUTO) 14.7 (2.1-6.9); PLATELET COUNT 326 x10e3/uL (140-360); RED BLOOD COUNT 2.85 x10e6/uL (3.6-5.1); RED CELL DISTRIBUTION WIDTH 15.5 % (11.7-14.4); WHITE BLOOD COUNT 15.51 x10e3/uL (4.8-10.8)
[2024-10-10] MEDS: LEVOTHYROXINE SODIUM 100 MCG TAB PO SCH (05:34)
[2024-10-10] MEDS: LEVOTHYROXINE SODIUM 75 MCG TAB PO SCH (05:34)
[2024-10-10 05:53] LABS: ALBUMIN 3.2 g/dL (3.5-5.0); ALBUMIN/GLOBULIN RATIO 1.2 (0.8-2.0); ANION GAP 13.5 mmol/L (8-16); BILIRUBIN,TOTAL 0.3 mg/dL (0.2-1.2); CALCIUM 8.3 mg/dL (8.4-10.2); CREATININE, SERUM 2.43 mg/dL (0.57-1.11); POTASSIUM 4.5 mmol/L (3.5-5.1); TOTAL PROTEIN 5.8 g/dL (6.5-8.1)
[2024-10-10] MEDS: DULOXETINE HCL 30 MG DELAYED RELEASE PO SCH (09:13)
[2024-10-10] MEDS: METOPROLOL TARTRATE 50 MG TAB PO SCH (09:13)
[2024-10-10] MEDS: CLOPIDOGREL BISULFATE 75 MG TAB PO SCH (09:13)
[2024-10-10] MEDS: AMLODIPINE BESYLATE 10 MG TAB PO SCH (09:13)
[2024-10-10] MEDS: METOCLOPRAMIDE HCL 10 MG TAB PO SCH (09:13)
[2024-10-10] MEDS: PANTOPRAZOLE SOD 40 MG TABEC PO SCH (09:13)
[2024-10-10] MEDS: HEPARIN SOD (PORCINE) 5,000 UNIT/ML VIAL SC SCH (13:36)
[2024-10-10] MEDS: BUDESONIDE/FORMOTEROL 160/4.5MCG INHALER INH SCH (13:52)
[2024-10-11] VITALS (12 sets, daily range): BP systolic 93–126; BP diastolic 32–45; PULSE 65–87; RESP 17–20; TEMP 97.3–98.4; O2SAT 95–100
[2024-10-11 05:32] LABS: BASOPHILS % 0.1 % (0.0-1.0); HEMATOCRIT 29.2 % (34.2-44.1); HEMOGLOBIN 9.3 g/dL (12.0-16.0); LYMPHOCYTES # (AUTO) 0.5 (1.0-3.2); LYMPHOCYTES % 2.3 % (18.0-39.1); MEAN CORPUSCULAR HEMOGLOBIN 33.9 pg (28-32); MEAN CORPUSCULAR HGB CONC 31.8 g/dL (31-35); MEAN CORPUSCULAR VOLUME 106.6 fL (81-99); MONOCYTES # (AUTO) 0.4 (0.2-0.8); MONOCYTES % 1.9 % (4.4-11.3); NEUTROPHILS # (AUTO) 20.4 (2.1-6.9); PLATELET COUNT 313 x10e3/uL (140-360); RED BLOOD COUNT 2.74 x10e6/uL (3.6-5.1); RED CELL DISTRIBUTION WIDTH 15.8 % (11.7-14.4); WHITE BLOOD COUNT 21.42 x10e3/uL (4.8-10.8)
[2024-10-11 06:10] LABS: ANION GAP 14.5 mmol/L (8-16); CALCIUM 7.6 mg/dL (8.4-10.2); CREATININE, SERUM 1.91 mg/dL (0.57-1.11); MAGNESIUM 2.1 MG/DL (1.3-2.1); PHOSPHORUS 3.9 MG/DL (2.3-4.7); POTASSIUM 4.5 mmol/L (3.5-5.1)
[2024-10-11] MEDS: INSULIN LISPRO 100 UNIT/1 ML 3ML VIAL SQ ONE ×2 (06:24→09:12)
[2024-10-11 10:27] LABS: BILIRUBIN,URINE NEGATIVE (NEGATIVE); CLARITY,URINE CLEAR (CLEAR); COLOR,URINE YELLOW (YELLOW); GLUCOSE, URINE 500 (NEGATIVE); KETONES,URINE 1+ (NEGATIVE); LEUKOCYTE ESTERASE ,URINE NEGATIVE (NEGATIVE); NITRITE,URINE NEGATIVE (NEGATIVE); PH,URINE 5.5 (5 - 7); PROTEIN,URINE DIPSTICK NEGATIVE (NEGATIVE); URINE UROBILINOGEN 0.2 mg/dL (0.2 - 1)
[2024-10-11 10:44] LABS: CREATININE,URINE RANDOM 76.73 mg/dL (47-110)
[2024-10-11 10:45] LABS: SODIUM,URINE < 20 mmol/L
[2024-10-11 10:49] LABS: BACTERIA,URINE RARE /HPF; EPITHELIAL CELLS,URINE FEW /LPF; WBC,URINE (MAN) 0-5 /HPF (0-5)
[2024-10-11] MEDS: CIPROFLOXACIN 500 MG TAB PO SCH (15:17)
[2024-10-12] VITALS (15 sets, daily range): BP systolic 104–137; BP diastolic 35–46; PULSE 64–83; RESP 16–20; TEMP 96.7–98.6; O2SAT 93–100
[2024-10-12] MEDS: METHYLPREDNISOLONE SOD SUCC 40 MG/ML VIAL 1ML IV SCH (05:07)
[2024-10-12 05:58] LABS: BASOPHILS % 0.1 % (0.0-1.0); HEMATOCRIT 28.2 % (34.2-44.1); HEMOGLOBIN 8.7 g/dL (12.0-16.0); LYMPHOCYTES # (AUTO) 1.7 (1.0-3.2); LYMPHOCYTES % 9.2 % (18.0-39.1); MEAN CORPUSCULAR HEMOGLOBIN 33.9 pg (28-32); MEAN CORPUSCULAR HGB CONC 30.9 g/dL (31-35); MEAN CORPUSCULAR VOLUME 109.7 fL (81-99); MONOCYTES # (AUTO) 1.1 (0.2-0.8); MONOCYTES % 6.1 % (4.4-11.3); NEUTROPHILS # (AUTO) 15.4 (2.1-6.9); PLATELET COUNT 298 x10e3/uL (140-360); RED BLOOD COUNT 2.57 x10e6/uL (3.6-5.1); RED CELL DISTRIBUTION WIDTH 16.2 % (11.7-14.4); WHITE BLOOD COUNT 18.29 x10e3/uL (4.8-10.8)
[2024-10-12 06:27] LABS: ANION GAP 15.3 mmol/L (8-16); CALCIUM 7.7 mg/dL (8.4-10.2); CREATININE, SERUM 1.66 mg/dL (0.57-1.11); POTASSIUM 4.3 mmol/L (3.5-5.1)
[2024-10-12] MEDS: INSULIN LISPRO 100 UNIT/1 ML 3ML VIAL SQ SCH (07:05)
[2024-10-13] VITALS (12 sets, daily range): BP systolic 39–123; BP diastolic 36–63; PULSE 63–110; RESP 18–20; TEMP 97.7–98.1; O2SAT 94–100
[2024-10-13] MEDS: INSULIN LISPRO 100 UNIT/1 ML 3ML VIAL SQ ONE (12:38)
[2024-10-13] MEDS: SODIUM BICARBONATE 8.4% VIAL 150 ML in STERILE WATER IV SOLN 1,000 ML IV SCH (12:45)
[2024-10-13] MEDS: SODIUM BICARBONATE 650 MG TAB PO SCH (16:25)
[2024-10-14] VITALS (12 sets, daily range): BP systolic 115–135; BP diastolic 41–53; PULSE 63–80; RESP 17–20; TEMP 97.3–97.8; O2SAT 95–100
[2024-10-14] MEDS: NYSTATIN SUSPENSION 5 ML UDC PO SCH (03:16)
[2024-10-14 06:05] LABS: BASOPHILS % 0.1 % (0.0-1.0); EOSINOPHILS # (AUTO) 0.1 (0.0-0.4); EOSINOPHILS % 0.6 % (0.0-6.0); HEMATOCRIT 28.2 % (34.2-44.1); HEMOGLOBIN 9.3 g/dL (12.0-16.0); LYMPHOCYTES # (AUTO) 2.2 (1.0-3.2); LYMPHOCYTES % 13.8 % (18.0-39.1); MEAN CORPUSCULAR HEMOGLOBIN 34.1 pg (28-32); MEAN CORPUSCULAR VOLUME 103.3 fL (81-99); MONOCYTES # (AUTO) 1.4 (0.2-0.8); MONOCYTES % 8.8 % (4.4-11.3); NEUTROPHILS # (AUTO) 11.9 (2.1-6.9); PLATELET COUNT 293 x10e3/uL (140-360); RED BLOOD COUNT 2.73 x10e6/uL (3.6-5.1); RED CELL DISTRIBUTION WIDTH 15.9 % (11.7-14.4); WHITE BLOOD COUNT 15.71 x10e3/uL (4.8-10.8)
[2024-10-14 06:35] LABS: ALBUMIN 2.8 g/dL (3.5-5.0); ALBUMIN/GLOBULIN RATIO 1.2 (0.8-2.0); ANION GAP 15.4 mmol/L (8-16); BILIRUBIN,TOTAL 0.4 mg/dL (0.2-1.2); CREATININE, SERUM 1.64 mg/dL (0.57-1.11); POTASSIUM 4.4 mmol/L (3.5-5.1); TOTAL PROTEIN 5.2 g/dL (6.5-8.1)
[2024-10-14] MEDS: FUROSEMIDE 20 MG TAB PO ONE (11:12)
[2024-10-15] VITALS (10 sets, daily range): BP systolic 119–138; BP diastolic 39–87; PULSE 59–72; RESP 16–22; TEMP 97.9–98.3; O2SAT 96–100
[2024-10-15 07:39] LABS: ANION GAP 17.5 mmol/L (8-16); CALCIUM 7.9 mg/dL (8.4-10.2); CREATININE, SERUM 1.84 mg/dL (0.57-1.11); POTASSIUM 4.5 mmol/L (3.5-5.1)
[2024-10-15] MEDS: PREDNISONE 20 MG TAB PO SCH (08:43)
[2024-10-16] VITALS (11 sets, daily range): BP systolic 90–144; BP diastolic 37–81; PULSE 61–69; RESP 16–20; TEMP 97.6–98.4; O2SAT 94–100
[2024-10-16 08:57] LABS: BASOPHILS % 0.2 % (0.0-1.0); EOSINOPHILS # (AUTO) 0.1 (0.0-0.4); EOSINOPHILS % 0.5 % (0.0-6.0); HEMATOCRIT 28.2 % (34.2-44.1); HEMOGLOBIN 8.9 g/dL (12.0-16.0); LYMPHOCYTES # (AUTO) 1.6 (1.0-3.2); MEAN CORPUSCULAR HEMOGLOBIN 33.6 pg (28-32); MEAN CORPUSCULAR HGB CONC 31.6 g/dL (31-35); MEAN CORPUSCULAR VOLUME 106.4 fL (81-99); MONOCYTES # (AUTO) 1.1 (0.2-0.8); MONOCYTES % 8.4 % (4.4-11.3); NEUTROPHILS # (AUTO) 9.8 (2.1-6.9); NEUTROPHILS % 77.5 % (38.7-80.0); PLATELET COUNT 250 x10e3/uL (140-360); RED BLOOD COUNT 2.65 x10e6/uL (3.6-5.1); RED CELL DISTRIBUTION WIDTH 15.9 % (11.7-14.4); WHITE BLOOD COUNT 12.56 x10e3/uL (4.8-10.8)
[2024-10-16 09:19] LABS: ALBUMIN 2.6 g/dL (3.5-5.0); ALBUMIN/GLOBULIN RATIO 1.1 (0.8-2.0); ANION GAP 20.4 mmol/L (8-16); BILIRUBIN,TOTAL 0.5 mg/dL (0.2-1.2); CREATININE, SERUM 1.79 mg/dL (0.57-1.11); POTASSIUM 4.4 mmol/L (3.5-5.1); TOTAL PROTEIN 4.9 g/dL (6.5-8.1)
== END 2024-10-16 21:26 | disposition home or self-care (01) | DRG 191 ==
LOC: ER 15:13 → ERHOLD 15:40 → MED/SURG2 16:52
PROVIDERS: ADMIT Family Medicine; ATTEND Family Medicine
DX: J44.1 Chronic obstructive pulmonary disease with (acute) exacerbation (principal); E87.1 Hypo-osmolality and hyponatremia; E87.20 Acidosis, unspecified; N17.9 Acute kidney failure, unspecified; E11.22 Type 2 diabetes mellitus with diabetic chronic kidney disease; E11.65 Type 2 diabetes mellitus with hyperglycemia; E11.51 Type 2 diabetes mellitus with diabetic peripheral angiopathy without gangrene; I12.9 Hypertensive chronic kidney disease with stage 1 through stage 4 chronic kidney disease, or unspecified chronic kidney disease; N18.30 Chronic kidney disease, stage 3 unspecified; D63.1 Anemia in chronic kidney disease; E03.9 Hypothyroidism, unspecified; K21.9 Gastro-esophageal reflux disease without esophagitis; R53.81 Other malaise; Z79.4 Long term (current) use of insulin; Z79.02 Long term (current) use of antithrombotics/antiplatelets; Z79.890 Hormone replacement therapy; Z90.49 Acquired absence of other specified parts of digestive tract; Z87.891 Personal history of nicotine dependence; E66.01 Morbid (severe) obesity due to excess calories; Z68.32 Body mass index [BMI] 32.0-32.9, adult
CPT/HCPCS: 36415; 71045; 71046; 71250; 76770; 80048; 80053; 81001; 82570; 82948; 83735; 84100; 84300; 85025; 87070; 87205; 94640; 94660; 94664; 94799; 99284; J0696; J1644; J2543; J2919; J7030; J7050; J7512